=== PATIENT | female | born 1995 | race Caucasian/White ===

== ENCOUNTER 2020-09-26 23:59 | Inpatient (IN) ==
[2020-09-27] MEDS ORDERED: Lidocaine 1% 20 ML MDV INFILT PRN (00:09)
[2020-09-27] MEDS ORDERED: Ondansetron 4 MG/2 ML VIAL IVP PRN (00:09)
[2020-09-27] MEDS ORDERED: Metoclopramide 10 MG/2 ML VIAL IVP PRN (00:09)
[2020-09-27] MEDS ORDERED: Penicillin G Potassium 5,000,000 UNIT in 0.9 % Sodium Chloride Mini Bag 100 ML IVPB ONE (00:09)
[2020-09-27] MEDS ORDERED: Naloxone 0.4 MG/ML INJ IVP PRN (00:09)
[2020-09-27] MEDS ORDERED: Famotidine 20 MG/2 ML VIAL IVP PRN (00:09)
[2020-09-27] MEDS ORDERED: miSOPROStoL 25 MCG TABLET PO PRN (00:12)
[2020-09-27] MEDS ORDERED: Oxytocin 20 units/ LR 1000 mL 20 UNIT/1,000 ML BAG IVC SCH ×2 (00:15→21:55)
[2020-09-27] MEDS ORDERED: Ringers Solution, Lactated 1,000 ML IVC SCH (00:15)
[2020-09-27 00:59] LABS: Amphetamine Screen,Urine Negative ng/mL (Cutoff=1000); Barbiturate Screen,Urine Negative ng/mL (Cutoff=200); Benzodiazepines Screen,Urine Negative ng/mL (Cutoff=200); Cannabinoid Screen,Urine Negative ng/mL (Cutoff = 50); Cocaine Screen,Urine Negative ng/mL (Cutoff= 300); Opiate Screen,Urine Negative ng/mL (Cutoff=300); Phencyclidine Screen,Urine Negative ng/mL (Cutoff=25)
[2020-09-27 01:27] LABS: Basophils # 0.1 K/mcL (0.0-0.2); Basophils % 0.3 %; Eosinophils # 0.1 K/mcL (0.0-0.6); Eosinophils % 0.8 %; Hematocrit 36.1 % (35.3-44.9); Hemoglobin 11.4 g/dL (11.5-15.4); Immature Granulocytes % 1.6 % (0-4); Lymphocytes # 2.3 K/mcL (0.6-4.6); Lymphocytes % 14.4 %; Mean Corpuscular HGB Conc 31.6 g/dL (31.6-35.5); Mean Corpuscular Hemoglobin 26.6 pg (28.0-33.3); Mean Corpuscular Volume 84.1 fL (83.0-100.0); Mean Platelet Volume 10.1 fL (9.4-12.4); Monocytes % 6.7 %; Neutrophils # 11.9 K/mcL (1.6-8.9); Platelet Count 269 K/mcL (140-400); Red Blood Count 4.29 M/mcL (3.82-4.97); Red Cell Distribution Width 13.4 % (11.5-14.5); Segmented Neutrophils % 76.2 %; White Blood Count 15.6 K/mcL (4.3-11.1)
[2020-09-27 01:39] LABS: Adenovirus Not Detected (Not Detect)
[2020-09-27 01:40] LABS: Bordetella Pertussis Not Detected (Not Detect); Chlamydophila pneumoniae Not Detected (Not Detect); Coronavirus 229E Not Detected (Not Detect); Coronavirus HKU1 Not Detected (Not Detect); Coronavirus NL63 Not Detected (Not Detect); Coronavirus OC43 Not Detected (Not Detect); Human Metapneumovirus Not Detected (Not Detect); Human Rhinovirus/Enterovirus Not Detected (Not Detect); Influenza A Subtype 2009 H1 Not Detected (Not Detect); Influenza B Not Detected (Not Detect); Mycoplasma pneumoniae Not Detected (Not Detect); Parainfluenza Virus 1 Not Detected (Not Detect); Parainfluenza Virus 2 Not Detected (Not Detect); Parainfluenza Virus 3 Not Detected (Not Detect); Parainfluenza Virus 4 Not Detected (Not Detect); Respiratory Syncytial Virus Not Detected (Not Detect); SARS-CoV-2 Not Detected (Not Detect)
[2020-09-27] MEDS ORDERED: Acetaminophen 325 MG TABLET PO ONE (04:30)
[2020-09-27] MEDS: Penicillin G Potassium 2,500,000 UNIT/105 ML MLS IVPB SCH ×4 (05:10→18:59)
[2020-09-27] MEDS: *HR* Nalbuphine 10 MG/ML AMPUL IV PRN ×2 (05:33→10:29)
[2020-09-27] MEDS ORDERED: EPHEDrine 50 MG/ML VIAL IVP PRN (06:18)
[2020-09-27] MEDS ORDERED: Epidural Premix (fent/bupiv) 110 ML EP SCH (06:30)
[2020-09-27] MEDS ORDERED: *HR* FentaNYL (PF) 100 MCG/2 ML VIAL EP ONE (12:16)
[2020-09-27] MEDS ORDERED: Ropivacaine/PF 0.2% 20 ML VIAL EP ONE (12:16)
[2020-09-27] MEDS ORDERED: Benzocaine/Menthol 56 GM AEROSOL SPRAY TP PRN (21:55)
[2020-09-27] MEDS ORDERED: Acetaminophen 325 MG TABLET PO PRN (21:55)
[2020-09-27] MEDS ORDERED: Lanolin 7 G OINT...G. TP PRN (21:55)
[2020-09-27] MEDS ORDERED: Ibuprofen 600 MG TABLET PO PRN (21:55)
[2020-09-28 06:03] LABS: Basophils % 0.2 %; Eosinophils # 0.1 K/mcL (0.0-0.6); Eosinophils % 0.7 %; Hematocrit 37.9 % (35.3-44.9); Immature Granulocytes % 0.7 % (0-4); Immature Platelets 3.2 % (1.1-6.1); Lymphocytes # 2.3 K/mcL (0.6-4.6); Mean Corpuscular HGB Conc 31.7 g/dL (31.6-35.5); Mean Corpuscular Hemoglobin 26.7 pg (28.0-33.3); Mean Corpuscular Volume 84.4 fL (83.0-100.0); Mean Platelet Volume 9.7 fL (9.4-12.4); Monocytes # 1.3 K/mcL (0.0-1.3); Monocytes % 6.7 %; Platelet Count 285 K/mcL (140-400); Red Blood Count 4.49 M/mcL (3.82-4.97); Red Cell Distribution Width 13.7 % (11.5-14.5); Segmented Neutrophils % 79.7 %; White Blood Count 18.8 K/mcL (4.3-11.1)
[2020-09-28 06:20] LABS: Platelet Estimate Normal (Normal)
[2020-09-28] MEDS ORDERED: Prenatal Vit/FA 1 EACH TABLET PO SCH (09:00)
[2020-09-28 09:03] VITALS: BP 121/64
== END 2020-09-28 21:37 | disposition home or self-care (01) | DRG 560 ==
LOC: 1NENULAB 23:59 → 1NENUOBS 09-27 22:33
PROVIDERS: ADMIT Student in an Organized Health Care Education/Training Program; ATTEND Student in an Organized Health Care Education/Training Program